=== PATIENT | female | born 1940 | race Caucasian/White ===

== ENCOUNTER 2020-06-28 08:44 | Emergency (ER) | payer OTHER, MEDICARE ==
[2020-06-28] MEDS ORDERED: Ketorolac Tromethamine 30 MG/ML VIAL ONE (10:48)
== END 2020-06-28 12:00 | disposition home or self-care (01) ==
LOC: ERS 08:44
DX: S63.502A Unspecified sprain of left wrist, initial encounter (principal); S90.112A Contusion of left great toe without damage to nail, initial encounter; R51.9 Headache, unspecified; V80.010A Animal-rider injured by fall from or being thrown from horse in noncollision accident, initial encounter
CPT/HCPCS: 70450; 72125; 96374; G0390; J1885